=== PATIENT | male | born 1960 | race African-American/Black ===

== ENCOUNTER 2018-07-03 23:57 | Inpatient (IN) | payer OTHER, SELFPAY ==
[2018-07-04] MEDS ORDERED: Propofol 1,000 MG/100 ML VIAL IV ONE (00:02)
--- NOTE | 2018-07-04 00:12 | PDOC.FPRHP ---
- History of Present Illness ED Course: intubation and diprivan - Allergies/Adverse Reactions Allergies Allergy/AdvReac Type Severity Reaction Status Date / Time Penicillins Allergy Verified 11/30/13 18:17 - Home Medications Medication Instructions Recorded Confirmed Type Phenytoin Sodium Extended 100 mg PO BID 02/23/14 02/26/14 History carBAMazepine [Tegretol] 200 mg PO TID 02/23/14 02/26/14 History - History PMHx: PSHx: FHx: Social: - Vital signs BP: 158/104 HR: 82 RR: Tmax: Pox: 100% on vent Wt: FMR H&P: Upper Level - Plan Date/Time: 07/04/18 0010 I, [], have evaluated this patient and agree with findings/plan as outlined by management internship resident. Pertinent changes/additions are listed here.
[2018-07-04 00:19] LABS: #Basophils 0.1 thou/uL (0.0-0.2); #Eosinphils 0.1 thou/uL (0.0-0.7); #Lymphocytes 1.2 thou/uL (1.20-3.40); #Monocytes 0.6 thou/uL (0.11-0.59); #Neutrophils 4.4 thou/uL (1.40-6.50); %Basophils 0.9 % (0.0-1.0); %Eosinophils 0.9 % (0.0-10.0); %Lymphocytes 19.7 % (21.0-51.0); %Monocytes 8.8 % (0.0-10.0); %Neutrophils 69.7 % (42.0-75.0); Hemoglobin 14.9 g/dL (14.0-18.0); Mean Corpuscular HGB CONC 32.7 g/dL (32.0-36.0); Mean Corpuscular Hemoglobin 32.1 pg (27.0-31.0); Mean Corpuscular Volume 98.2 fL (78.0-98.0); Mean Platelet Volume 6.9 fL (7.4-10.4); Platelet Count 254 thou/uL (130-400); RBC Distribution Width 13.8 % (11.5-14.5); Red Blood Cell (RBC) Count 4.65 mill/uL (4.70-6.10); White Blood Cell (WBC) Count 6.3 thou/uL (4.8-10.8)
[2018-07-04] MEDS ORDERED: Vecuronium 10 MG VIAL ONE (00:22)
[2018-07-04 00:24] LABS: Bilirubin Negative (Negative); Blood, Urine Small (Negative); Clarity CLOUDY (Clear); Glucose, Urine (Dipstick) Negative (Negative); Leukocyte Large (Negative); Nitrite Positive (Negative); Protein, Urine (Dipstick) Negative (Neg-Trace); Specific Gravity, Urine 1.007 (1.002-1.036); Urobilinogen 0.2 mg/dL (0.2-1.0); pH, Urine 6.5 (5.0-9.0)
[2018-07-04] MEDS ORDERED: Sterile Water 10 ML ONE (00:24)
[2018-07-04 00:25] LABS: INR-International Normal Ratio 1.1; Prothrombin Time 14.7 SEC (12.0-14.7)
[2018-07-04 00:26] LABS: Bacteria/HPF 3+ HPF (None Seen); RBC/HPF 0-3 HPF (0-3); Squamous Epithelial 0-3 HPF (0-3)
[2018-07-04 00:30] LABS: Hyaline Casts/LPF 0-3 HYALINE CAST LPF (0-3 Hyaline); Other Casts/LPF None Seen LPF (0-3 Hyaline)
[2018-07-04 00:38] LABS: ALT (SGPT) 19 U/L (8-55); AST (SGOT) 29 U/L (5-34); Albumin 4.6 g/dL (3.5-5.0); Alcohol 203 mg/dL (Less than 10); Alkaline Phosphatase 74 U/L (40-150); Anion Gap 19 mmol/L (10-20); BUN (Urea Nitrogen) 9 mg/dL (8.4-25.7); Bilirubin, Total 0.3 mg/dL (0.2-1.2); Calc. Creatinine Clearance 0 mL/min (70-130); Calcium 8.8 mg/dL (7.8-10.44); Carbon Dioxide 20 mmol/L (22-29); Chloride 104 mmol/L (98-107); Estimated GFR-MDRD Greater than 90; Globulin 3.4 g/dL (2.4-3.5); Glucose 105 mg/dL (70-105); Lipase 45 U/L (8-78); Potassium 3.9 mmol/L (3.5-5.1); Sodium 139 mmol/L (136-145)
[2018-07-04] MEDS ORDERED: cefTRIAXone\\ROCEPHIN 1 GM VIAL ONE (00:55)
[2018-07-04] MEDS ORDERED: Multivitamins, Adult 10 ML, Thiamine HCl 100 MG, Folic Acid 1 MG in Dextrose 5 %-0.45 %... IV ONE (01:00)
[2018-07-04] MEDS ORDERED: Dextrose 5% in Water 1,000 ML IV PRN (01:06)
[2018-07-04] MEDS ORDERED: hydrALAZINE 20 MG/ML VIAL SLOW IVP PRN (01:06)
[2018-07-04] MEDS ORDERED: Ondansetron PF 4 MG/2 ML Vial IVP PRN (01:06)
[2018-07-04] MEDS ORDERED: Dextrose 50% Abboject 50 ML SYRINGE SLOW IVP PRN (01:06)
[2018-07-04] MEDS ORDERED: Lorazepam 2 MG/ML VIAL SLOW IVP PRN ×3 (01:06→01:18)
[2018-07-04 01:13] LABS: Actual Bicarbonate (HCO3a) 17.3 mEq/L (22-28); Analyzer IN Cardio ER; Base Excess (BEa) -7.6 mEq/L (-2.0 to +3.0); CO2 Tension 33.8 mmHg (35.0-45.0); Carboxyhemoglobin (COHb) 3.5 gm% (0.0-3.0); Hemoglobin (Hb) 14.7 g/dL (14.0-18.0); Potassium - ABG Lab 3.39 mmol/L (3.70-5.30); pH, Arterial 7.33 (7.35-7.45)
[2018-07-04 01:14] LABS: Puncture Site RRA
[2018-07-04] MEDS ORDERED: Rib Fracture Protocol IV SCH (01:15)
[2018-07-04] MEDS ORDERED: Ventilator Sedation Protocol 1 EACH FS SCH (01:15)
[2018-07-04 01:16] LABS: O2 Tension (PaO2) 529.9 mmHg (80.0-100.0)
[2018-07-04] MEDS ORDERED: fentaNYL Citrate/PF 2,000 MCG in Sodium Chloride 0.9% 60 ML IV SCH (01:18)
[2018-07-04] MEDS ORDERED: Morphine 2 MG/ML SYRINGE SLOW IVP PRN (01:18)
[2018-07-04] MEDS ORDERED: Fentanyl BOLUS 250 ML IVPB PRN (01:18)
[2018-07-04] MEDS ORDERED: DISCONTINUE PREVIOUS NARCOTIC PAIN MEDICATIONS AND BENZODIAZEPINES FS SCH (01:18)
[2018-07-04] MEDS ORDERED: Propofol BOLUS 1,000 MG/100 ML VIAL IV PRN (01:18)
[2018-07-04 02:12] LABS: Amphetamine Not Detected (NotDetected); Benzodiazepine Screen Not Detected (NotDetected); Cocaine Metabolite Screen Detected (NotDetected); Medtox Reader # READER 4; Methamphetamine Detected (NotDetected); Opiate Screen Not Detected (NotDetected); Phencyclidine (PCP) Not Detected (NotDetected); THC/Cannabinoid Screen Detected (NotDetected)
[2018-07-04 02:13] LABS: Barbiturates Screen Detected (NotDetected); Medtox Control Line Valid? VALID (VALID); Methadone Not Detected (NotDetected); Oxycodone Screen Not Detected (NotDetected); Tricyclic Screen Not Detected (NotDetected)
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
[2018-07-04 05:17] LABS: #Basophils 0.1 thou/uL (0.0-0.2); #Monocytes 0.6 thou/uL (0.11-0.59); #Neutrophils 3.9 thou/uL (1.40-6.50); %Basophils 1.2 % (0.0-1.0); %Eosinophils 0.4 % (0.0-10.0); %Lymphocytes 30.2 % (21.0-51.0); %Neutrophils 59.2 % (42.0-75.0); Hemoglobin 13.8 g/dL (14.0-18.0); Mean Corpuscular HGB CONC 32.9 g/dL (32.0-36.0); Mean Corpuscular Hemoglobin 32.6 pg (27.0-31.0); Mean Corpuscular Volume 98.9 fL (78.0-98.0); Platelet Count 202 thou/uL (130-400); RBC Distribution Width 13.7 % (11.5-14.5); Red Blood Cell (RBC) Count 4.24 mill/uL (4.70-6.10); White Blood Cell (WBC) Count 6.6 thou/uL (4.8-10.8)
[2018-07-04] MEDS: Sodium Chloride 0.9% 1,000 ML IV SCH ×2 (05:24→10:02)
[2018-07-04] MEDS: Ketorolac Tromethamine 30 MG/ML VIAL IVP SCH ×3 (05:26→17:49)
[2018-07-04 05:28] LABS: Lactic Acid 6.1 mmol/L (0.5-2.2)
[2018-07-04 05:30] LABS: Anion Gap 20 mmol/L (10-20); BUN (Urea Nitrogen) 7 mg/dL (8.4-25.7); Calc. Creatinine Clearance 41 mL/min (70-130); Calcium 8.1 mg/dL (7.8-10.44); Carbon Dioxide 17 mmol/L (22-29); Chloride 107 mmol/L (98-107); Estimated GFR-MDRD Greater than 90; Glucose 99 mg/dL (70-105); Potassium 3.6 mmol/L (3.5-5.1); Sodium 140 mmol/L (136-145)
[2018-07-04] MEDS: Propofol 1,000 MG/100 ML VIAL IV PRN ×2 (05:37→10:01)
[2018-07-04] MEDS: Acetaminophen 650 MG Suppository PR SCH ×3 (05:57→17:49)
[2018-07-04] MEDS ORDERED: Famotidine/PF 20 mg/2ml Vial SLOW IVP SCH (09:00)
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
[2018-07-04] MEDS: Enoxaparin Sodium 40 MG/0.4 ML SYRINGE SC SCH (10:00)
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
--- NOTE | 2018-07-04 10:12 | RAD ---
CHEST ONE VIEW: History: Chest pain. Follow up. Comparison: 07-04-18 FINDINGS: Cardiac silhouette is magnified by projection. Pulmonary vasculature is unremarkable. Mediastinum is midline. Lines and tubes appear unchanged in position. Lungs remain hyperinflated. Old left rib fract ures. IMPRESSION: Stable radiographic appearance of the chest. POS: [facility]
[2018-07-04] MEDS ORDERED: Labetalol HCl 100 MG/20 ML VIAL SLOW IVP PRN (10:53)
[2018-07-04] MEDS ORDERED: hydrALAZINE 20 MG/ML VIAL SLOW IVP SCH (11:00)
--- NOTE | 2018-07-04 11:03 | PDOC.PN ---
- Subjective Encounter Start Date: 07/04/18 Encounter Start Time: 07:00 -: non-verbal Pt seen for management of medical comorbidities, including elevated blood pressure. Pt is intubated, unable to complete ROS. - Objective Resuscitation Status - Order Detail: 07/04/18 01:06 Resuscitation Status Routine Resuscitation Status: FULL: Full Resuscitation MAR Reviewed: Yes Vital Signs & Weight: Vital Signs (12 hours) Temp Pulse Resp BP Pulse Ox 07/04/18 10:00 20 07/04/18 08:52 87 146/100 H 07/04/18 08:43 88 20 100 07/04/18 08:00 99.8 F H 20 07/04/18 06:00 20 07/04/18 04:35 100 07/04/18 04:00 20 07/04/18 02:21 80 143/106 H 07/04/18 02:15 20 Weight Weight 56 lb 12.8 oz Most Recent Monitor Data Heart Rate from ECG 88 NIBP 156/102 NIBP BP-Mean 120 Respiration from ECG 20 SpO2 100 I&O: 07/03/18 07/04/18 07/05/18 06:59 06:59 06:59 Intake Total 882.8 Output Total 990 775 Balance -107.2 -775 Result Diagrams: 07/04/18 04:43 07/04/18 04:43 EKG Reviewed by me: Yes (Tele: NSR) Phys Exam - Physical Examination Intubated and mechanically ventilated HEENT: moist MMs ETT Respiratory: clear to auscultation bilateral Cardiovascular: RRR Gastrointestinal: soft No spontaneous limb movements Deviation from normal: Unable to assess Dx/Plan (1) Elevated blood pressure reading without diagnosis of hypertension Code(s): R03.0 - ELEVATED BLOOD-PRESSURE READING, W/O DIAGNOSIS OF HTN Status : Acute Comment: continue PRN IV hydralazine and start PRN IV labetalol. (2) Acute respiratory failure Code(s): J96.00 - ACUTE RESPIRATORY FAILURE, UNSP W HYPOXIA OR HYPERCAPNIA Status: Acute Comment: Intubated and mechanical ventilation (3) Seizure disorder Code(s): G40.909 - EPILEPSY, UNSP, NOT INTRACTABLE, WITHOUT STATUS EPILEPTICUS Status: Chronic Comment: resume home meds when clarified, check phenytoin level - Plan * . Review of Systems - Medications/Allergies Allergies/Adverse Reactions: Allergies Allergy/AdvReac Type Severity Reaction Status Date / Time Penicillins Allergy Verified 11/30/13 18:17 Medications: Current Medications Acetaminophen (Tylenol) 650 mg CA Q6HR [facility] Last Admin: 07/04/18 05:57 Dose: 650 mg Albuterol/Ipratropium (Duoneb) 3 ml NEB Q4H PRN PRN Reason: Wheezing Albuterol/Ipratropium (Duoneb) 3 ml NEB [id number] [facility] Last Admin: 07/04/18 08:43 Dose: 3 ml Dextrose/Water (Dextrose 50%) 25 gm SLOW IVP PRN PRN PRN Reason: Hypoglycemia Enoxaparin Sodium (Lovenox) 40 mg SC 0900 [facility] Last Admin: 07/04/18 10:00 Dose: 40 mg Famotidine (Pepcid) 20 mg SLOW IVP Q12HR [facility] Last Admin: 07/04/18 10:00 Dose: 20 mg Glucagon (Glucagon) 1 mg IM PRN PRN PRN Reason: Hypoglycemia Hydralazine HCl (Apresoline) 10 mg SLOW IVP Q4H PRN PRN Reason: SBP > 170 or DBP > 100 Hydralazine HCl (Apresoline) 10 mg SLOW IVP NOW EDISON Stop: 07/04/18 13:00 Dextrose/Water (D5w) 1,000 mls @ 0 mls/hr IV .Q0M PRN PRN Reason: Hypoglycemia Sodium Chloride (Normal Saline 0.9%) 1,000 mls @ 120 mls/hr IV .Q8H20M [facility] Last Admin: 07/04/18 10:02 Dose: 1,000 mls Fentanyl Citrate 2,000 mcg/ (Sodium Chloride) 100 mls @ 0 mls/hr IV INF EDISON; Protocol Stop: 08/03/18 01:18 Fentanyl Citrate (Fentanyl Bolus) 250 mls @ 0 mls/hr IVPB PRN PRN PRN Reason: Breakthrough pain/agitation Stop: 08/03/18 01:18 Ketorolac Tromethamine (Toradol) 30 mg IVP Q6HR [facility] Stop: 07/09/18 06:01 Last Admin: 07/04/18 05:26 Dose: 30 mg Labetalol HCl (Normodyne) 10 mg SLOW IVP Q4H PRN PRN Reason: SBP GREATER THAN 160 Lorazepam (Ativan) 2 mg SLOW IVP Q6H PRN PRN Reason: Anxiety/Agitation Last Admin: 07/04/18 02:45 Dose: 2 mg Lorazepam (Ativan) 4 mg SLOW IVP Q6H PRN PRN Reason: SEVERE Anxiety/Agitation Lorazepam (Ativan) 2 mg SLOW IVP Q1H PRN PRN Reason: Breakthrough agitation Stop: 08/03/18 01:18 Miscellaneous Medication (Rib Fracture Protocol) 1 each IV ONE EDISON Stop: 07/04/18 23:59 Miscellaneous Medication (Ventilator Sedation Protocol) 1 each FS ONE EDISON Stop: 07/04/18 23:59 Morphine Sulfate (Morphine) 2 mg SLOW IVP Q1H PRN PRN Reason: BREAKTHROUGH PAIN/Agitation Stop: 08/03/18 01:18 Discontinue Previous Narcotic Pain Medications And Benzodiazepines 1 each FS .ONE EDIOSN Stop: 08/03/18 01:18 Ondansetron HCl (Zofran) 4 mg IVP Q6H PRN PRN Reason: Nausea Propofol (Diprivan) 1,000 mg IV INF PRN; Protocol PRN Reason: TO ACHIEVE GOAL RASS Stop: 08/03/18 01:18 Last Admin: 07/04/18 10:01 Dose: 1,000 mg Propofol (Diprivan Bolus) 20 mg IV Q5MIN PRN PRN Reason: BREAKTHROUGH AGITATION Stop: 08/03/18 01:18 Sodium Chloride (Flush - Normal Saline) 10 ml IVF PRN PRN PRN Reason: Saline Flush
--- NOTE | 2018-07-04 11:40 | RAD ---
CHEST XRAY: DATE: 07/04/2018. HISTORY: Rib fractures, on ventilator. Followup evaluation. COMPARISON: 02/24/2014. FINDINGS: Endotracheal tube is now noted in place with the tip overlying the T4 vertebral body and above the le amado of the allegra. Cardiac silhouette is magnified by projection. The pulmonary vasculature is with in normal limits. There are remote fractures involving the left posterior 9th and 10th ribs. There is a slightly displaced fracture involving the anterolateral left 3rd rib and probably the lateral 4t h rib. There is also a fracture involving the distal left clavicle which appears slightly displaced. The lungs are clear bilaterally, and there is no pneumothorax or pleural effusion seen. Cardiac si lhouette is magnified by projection. Pulmonary vasculature is within normal limits. IMPRESSION: 1. Endotracheal tube noted in place which is above the level of the allegra. 2. Fracture involving the distal left clavicle as well as subtle fractures involving the left kentrell lateral 3rd and lateral left 4th ribs. 3. Remote left posterior 9th and 10th ribs. POS: [facility]
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
[2018-07-04] MEDS: carBAMazepine 200 MG TAB PO SCH (14:51)
[2018-07-04] MEDS: Sodium Chloride 0.45% 1,000 ML IV SCH (15:20)
[2018-07-04] MEDS ORDERED: Acetaminophen 500 MG TAB PO PRN (17:52)
[2018-07-04] MEDS ORDERED: Rib Fracture Protocol PO SCH (18:42)
[2018-07-04] MEDS ORDERED: Cyclobenzaprine 10 MG TAB PO PRN (19:00)
[2018-07-04] MEDS: Gabapentin 300 MG CAP PO SCH (20:54)
[2018-07-05] MEDS ORDERED: cefTRIAXone\\ROCEPHIN 1 GM in Sodium Chloride 0.9% 100 ML IVPB SCH (01:00)
[2018-07-05] MEDS: Ketorolac Tromethamine 30 MG/ML VIAL IVP SCH ×3 (01:14→12:06)
[2018-07-05] MEDS: Ibuprofen 800 MG TAB PO SCH ×6 (01:15→23:04)
[2018-07-05] MEDS: Acetaminophen 500 MG TAB PO SCH ×5 (01:15→23:04)
[2018-07-05] MEDS: traMADol HCl 50 MG TAB PO SCH ×2 (01:15→05:14)
[2018-07-05] MEDS: Sodium Chloride 0.45% 1,000 ML IV SCH (03:36)
[2018-07-05] MEDS ORDERED: VANCOMYCIN IVPB PRN (07:20)
[2018-07-05 07:55] LABS: Lavender RECEIVED; Red RECEIVED
[2018-07-05] MEDS ORDERED: Vancomycin HCl 750 MG in Sodium Chloride 0.9% 250 ML 250 ML IVPB SCH (08:00)
[2018-07-05] MEDS ORDERED: HYDROcodone/Acetaminophen 5/325 mg Tablet PO PRN ×2 (08:05)
[2018-07-05] MEDS: Enoxaparin Sodium 40 MG/0.4 ML SYRINGE SC SCH (08:25)
[2018-07-05] MEDS: Gabapentin 300 MG CAP PO SCH ×3 (08:26→19:57)
[2018-07-05] MEDS: carBAMazepine 200 MG TAB PO SCH ×4 (08:26→19:56)
[2018-07-05 08:31] LABS: #Basophils 0.1 thou/uL (0.0-0.2); #Lymphocytes 1.7 thou/uL (1.20-3.40); #Monocytes 0.7 thou/uL (0.11-0.59); #Neutrophils 3.2 thou/uL (1.40-6.50); %Basophils 1.7 % (0.0-1.0); %Eosinophils 0.8 % (0.0-10.0); %Lymphocytes 29.7 % (21.0-51.0); %Monocytes 11.6 % (0.0-10.0); %Neutrophils 56.2 % (42.0-75.0); Anion Gap 13 mmol/L (10-20); BUN (Urea Nitrogen) 9 mg/dL (8.4-25.7); Calc. Creatinine Clearance 79 mL/min (70-130); Carbon Dioxide 22 mmol/L (22-29); Chloride 105 mmol/L (98-107); Estimated GFR-MDRD Greater than 90; Glucose 111 mg/dL (70-105); Hemoglobin 14.4 g/dL (14.0-18.0); Magnesium 2.2 mg/dL (1.6-2.6); Mean Corpuscular HGB CONC 32.6 g/dL (32.0-36.0); Mean Corpuscular Hemoglobin 32.1 pg (27.0-31.0); Mean Corpuscular Volume 98.5 fL (78.0-98.0); Mean Platelet Volume 6.9 fL (7.4-10.4); Phosphorus 2.7 mg/dL (2.3-4.7); Platelet Count 185 thou/uL (130-400); Potassium 4.1 mmol/L (3.5-5.1); RBC Distribution Width 13.7 % (11.5-14.5); Sodium 136 mmol/L (136-145); White Blood Cell (WBC) Count 5.6 thou/uL (4.8-10.8)
--- NOTE | 2018-07-05 13:52 | PDOC.PN ---
- Subjective Encounter Start Date: 07/05/18 Encounter Start Time: 09:00 Pt seen for followup re: seizure. Had Code Green earlier for seizure. Denies chest pain, shortness of breath, fevers or chills. - Objective Resuscitation Status - Order Detail: 07/04/18 01:06 Resuscitation Status Routine Resuscitation Status: FULL: Full Resuscitation Vital Signs & Weight: Vital Signs (12 hours) Temp Pulse Pulse Resp Resp BP BP 07/05/18 13:25 92 24 H 07/05/18 12:00 97.6 F 73 16 138/90 07/05/18 07:58 97.5 F L 64 16 135/92 H 07/05/18 07:39 07/05/18 07:36 63 28 H 07/05/18 07:28 63 18 158/99 H 07/05/18 04:32 97.8 F 73 20 BP Pulse Ox Pulse Ox 07/05/18 13:25 07/05/18 12:00 98 07/05/18 07:58 96 07/05/18 07:39 97 07/05/18 07:36 97 07/05/18 07:28 97 07/05/18 04:32 126/83 97 Weight Weight 125 lb 3.561 oz Most Recent Monitor Data Heart Rate from ECG 83 NIBP 140/96 NIBP BP-Mean 110 Respiration from ECG 20 SpO2 97 I&O: 07/04/18 07/05/18 07/06/18 06:59 06:59 06:59 Intake Total 882.8 2140 Output Total 990 3255 Balance -107.2 -1115 Result Diagrams: 07/05/18 07:39 07/05/18 07:39 Additional Labs: Accuchecks 07/05/18 07:33 POC Glucose 105 Phys Exam - Physical Examination Constitutional: NAD HEENT: moist MMs Neck: supple Respiratory: clear to auscultation bilateral Cardiovascular: RRR Gastrointestinal: soft Neurological: moves all 4 limbs Psychiatric: normal affect Dx/Plan (1) Seizure Code(s): R56.9 - UNSPECIFIED CONVULSIONS Status: Acute Comment: phenytoin level subtherapeutic; phenytoin loading followed by daily phenytoin. Resume keppra. (2) Elevated blood pressure reading without diagnosis of hypertension Code(s): R03.0 - ELEVATED BLOOD-PRESSURE READING, W/O DIAGNOSIS OF HTN Status : Acute Comment: controlled (3) Acute respiratory failure Code(s): J96.00 - ACUTE RESPIRATORY FAILURE, UNSP W HYPOXIA OR HYPERCAPNIA Status: Acute Comment: s/p extubation - Plan * . Review of Systems - Review of Systems Respiratory: negative: Cough, Shortness of Breath, SOB with Excertion, Pleuritic Pain, Wheezing Cardiovascular: negative: chest pain, palpitations, orthopnea, paroxysmal nocturnal dyspnea, edema, light headedness - Medications/Allergies Allergies/Adverse Reactions: Allergies Allergy/AdvReac Type Severity Reaction Status Date / Time Penicillins Allergy Verified 11/30/13 18:17 Medications: Current Medications Acetaminophen (Tylenol) 1,000 mg PO Q6HR [facility] Last Admin: 07/05/18 12:05 Dose: 1,000 mg Hydrocodone Bitart/Acetaminophen ([place] 5/325) 1 tab PO Q4H PRN PRN Reason: Moderate to Severe Pain (6-10) Hydrocodone Bitart/Acetaminophen ([place] 5/325) 2 tab PO Q4H PRN PRN Reason: Severe Pain (7-10) Albuterol/Ipratropium (Duoneb) 3 ml NEB Q4H PRN PRN Reason: Wheezing Albuterol/Ipratropium (Duoneb) 3 ml NEB [id number] [facility] Last Admin: 07/05/18 13:25 Dose: 3 ml Carbamazepine (Tegretol) 200 mg PO TID-[facility] Last Admin: 07/05/18 12:06 Dose: 200 mg Carbamazepine (Tegretol) 200 mg PO TID [facility] Cyclobenzaprine HCl (Flexeril) 10 mg PO TID PRN PRN Reason: Muscle Spasm Dextrose/Water (Dextrose 50%) 25 gm SLOW IVP PRN PRN PRN Reason: Hypoglycemia Enoxaparin Sodium (Lovenox) 40 mg SC 0900 [facility] Last Admin: 07/05/18 08:25 Dose: 40 mg Gabapentin (Neurontin) 300 mg PO TID [facility] Last Admin: 07/05/18 08:26 Dose: 300 mg Glucagon (Glucagon) 1 mg IM PRN PRN PRN Reason: Hypoglycemia Hydralazine HCl (Apresoline) 10 mg SLOW IVP Q4H PRN PRN Reason: SBP > 170 or DBP > 100 Dextrose/Water (D5w) 1,000 mls @ 0 mls/hr IV .Q0M PRN PRN Reason: Hypoglycemia Sodium Chloride (1/2 Normal Saline) 1,000 mls @ 0 mls/hr IV .Q0M [facility] Last Admin: 07/05/18 03:36 Dose: Not Given Ceftriaxone Sodium 1 gm/ (Sodium Chloride) 100 mls @ 200 mls/hr IVPB Q24HR@ 0100 [facility] Last Admin: 07/05/18 01:16 Dose: 100 mls Ciprofloxacin/Dextrose 400 mg/ (Device) 200 mls @ 200 mls/hr IVPB 1200,2359 [facility] Last Admin: 07/05/18 12:06 Dose: 200 mls Ibuprofen (Motrin) 800 mg PO Q6HR [facility] Last Admin: 07/05/18 12:17 Dose: Not Given Ketorolac Tromethamine (Toradol) 30 mg IVP Q6HR [facility] Stop: 07/09/18 06:01 Last Admin: 07/05/18 12:06 Dose: 30 mg Labetalol HCl (Normodyne) 10 mg SLOW IVP Q4H PRN PRN Reason: SBP GREATER THAN 160 Lorazepam (Ativan) 4 mg SLOW IVP Q6H PRN PRN Reason: SEVERE Anxiety/Agitation Lorazepam (Ativan) 2 mg SLOW IVP Q1H PRN PRN Reason: Breakthrough agitation Stop: 08/03/18 01:18 Miscellaneous Medication (Rib Fracture Protocol) 1 each PO ONE [facility] Stop: 07/14/18 18:43 Discontinue Previous Narcotic Pain Medications And Benzodiazepines 1 each FS .ONE [facility] Stop: 08/03/18 01:18 Ondansetron HCl (Zofran) 4 mg IVP Q6H PRN PRN Reason: Nausea Phenytoin Sodium (Dilantin Er) 100 mg PO BID [facility] Sodium Chloride (Flush - Normal Saline) 10 ml IVF PRN PRN PRN Reason: Saline Flush
[2018-07-05] MEDS ORDERED: Nitrofurantoin Monohyd/M-Cryst 100 MG CAP PO SCH (15:00)
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
[2018-07-05] MEDS: Nitrofurantoin Monohyd/M-Cryst 100 MG CAP PO SCH (19:56)
[2018-07-06] MEDS: Sodium Chloride 0.45% 1,000 ML IV SCH (01:02)
[2018-07-06] MEDS: Acetaminophen 500 MG TAB PO SCH ×2 (05:22→11:40)
[2018-07-06] MEDS: Ibuprofen 800 MG TAB PO SCH ×2 (05:22→11:40)
[2018-07-06 06:08] LABS: #Eosinphils 0.1 thou/uL (0.0-0.7); #Monocytes 0.6 thou/uL (0.11-0.59); %Basophils 0.5 % (0.0-1.0); %Eosinophils 0.9 % (0.0-10.0); %Lymphocytes 15.3 % (21.0-51.0); %Monocytes 9.3 % (0.0-10.0); Hemoglobin 13.2 g/dL (14.0-18.0); Mean Corpuscular HGB CONC 32.5 g/dL (32.0-36.0); Mean Corpuscular Hemoglobin 32.2 pg (27.0-31.0); Mean Platelet Volume 7.2 fL (7.4-10.4); Platelet Count 157 thou/uL (130-400); RBC Distribution Width 13.7 % (11.5-14.5); Red Blood Cell (RBC) Count 4.09 mill/uL (4.70-6.10); White Blood Cell (WBC) Count 6.8 thou/uL (4.8-10.8)
[2018-07-06 06:31] LABS: Anion Gap 12 mmol/L (10-20); BUN (Urea Nitrogen) 8 mg/dL (8.4-25.7); Calc. Creatinine Clearance 80 mL/min (70-130); Calcium 8.8 mg/dL (7.8-10.44); Carbon Dioxide 26 mmol/L (22-29); Chloride 102 mmol/L (98-107); Estimated GFR-MDRD Greater than 90; Glucose 117 mg/dL (70-105); Magnesium 2.1 mg/dL (1.6-2.6); Phosphorus 3.5 mg/dL (2.3-4.7); Potassium 3.5 mmol/L (3.5-5.1); Sodium 136 mmol/L (136-145)
[2018-07-06 08:32] VITALS: TEMP 98.2
[2018-07-06] MEDS: Enoxaparin Sodium 40 MG/0.4 ML SYRINGE SC SCH (08:35)
[2018-07-06] MEDS: Gabapentin 300 MG CAP PO SCH ×2 (08:35→15:38)
[2018-07-06] MEDS: carBAMazepine 200 MG TAB PO SCH ×2 (08:35→15:37)
[2018-07-06] MEDS: Nitrofurantoin Monohyd/M-Cryst 100 MG CAP PO SCH (08:35)
[2018-07-06 11:50] VITALS: BP 153/97
--- NOTE | 2018-07-06 17:26 | PDOC.PN ---
- Subjective Encounter Start Date: 07/06/18 Encounter Start Time: 08:40 Pt seen for followup re: seizure. No complaints today. - Objective Resuscitation Status - Order Detail: 07/04/18 01:06 Resuscitation Status Routine Resuscitation Status: FULL: Full Resuscitation Vital Signs & Weight: Vital Signs (12 hours) Temp Pulse Resp BP Pulse Ox 07/06/18 13:32 90 14 07/06/18 10:31 98.2 F 84 18 153/97 H 97 07/06/18 08:45 97 07/06/18 07:14 80 14 07/06/18 07:10 98.2 F 82 18 166/94 H 97 Weight Weight 125 lb 3.561 oz Most Recent Monitor Data Heart Rate from ECG 83 NIBP 140/96 NIBP BP-Mean 110 Respiration from ECG 20 SpO2 97 I&O: 07/05/18 07/06/18 07/07/18 06:59 06:59 06:59 Intake Total 2140 3100 Output Total 3255 1600 Balance -1115 1500 Result Diagrams: 07/06/18 05:21 07/06/18 05:21 Phys Exam - Physical Examination Constitutional: NAD HEENT: moist MMs Neck: supple Respiratory: clear to auscultation bilateral Cardiovascular: RRR Gastrointestinal: soft Neurological: moves all 4 limbs Psychiatric: normal affect Dx/Plan (1) Seizure Code(s): R56.9 - UNSPECIFIED CONVULSIONS Status: Acute Comment: pt has been restarted on phenytoin. Likely home today, continue phenytoin and Keppra as outpt. Discussed with pt the importance of having phenytoin level and albumin level checked in 5 days. Patient expressed understanding. (2) Elevated blood pressure reading without diagnosis of hypertension Code(s): R03.0 - ELEVATED BLOOD-PRESSURE READING, W/O DIAGNOSIS OF HTN Status : Acute Comment: patient has been started on amlodipine. Advised pt to followup with primary care provider re; hypertension management. Pt expressed understanding. (3) UTI (urinary tract infection) Status: Acute Comment: Course of nitrofurantoin as outpatient (4) Acute respiratory failure Code(s): J96.00 - ACUTE RESPIRATORY FAILURE, UNSP W HYPOXIA OR HYPERCAPNIA Status: Resolved Comment: resolved - Plan * . Plan to discharge noted, will sign off. Review of Systems - Review of Systems Cardiovascular: negative: chest pain, palpitations, orthopnea, paroxysmal nocturnal dyspnea, edema, light headedness Gastrointestinal: negative: Nausea, Vomiting, Abdominal Pain, Diarrhea, Constipation, Melena, Hematochezia Neurological: negative: Confusion, Seizures - Medications/Allergies Allergies/Adverse Reactions: Allergies Allergy/AdvReac Type Severity Reaction Status Date / Time Penicillins Allergy Verified 11/30/13 18:17
== END 2018-07-06 16:05 | disposition home or self-care (01) | DRG 189 ==
LOC: ERS 23:57 → CCU 07-04 00:51 → SURG A 07-04 18:48
PROVIDERS: ADMIT Surgery; ATTEND Surgery
PROC: 0BH17EZ Insertion of Endotracheal Airway into Trachea, Via Natural or Artificial Opening (ICD-10-PCS; principal; 2018-07-04)
DX: J96.01 Acute respiratory failure with hypoxia (principal); S22.42XA Multiple fractures of ribs, left side, initial encounter for closed fracture; E87.2 Acidosis; N39.0 Urinary tract infection, site not specified; S42.002A Fracture of unspecified part of left clavicle, initial encounter for closed fracture; V03.90XA Pedestrian on foot injured in collision with car, pick-up truck or van, unspecified whether traffic or nontraffic accident, initial encounter; F10.129 Alcohol abuse with intoxication, unspecified; Y90.9 Presence of alcohol in blood, level not specified; J44.9 Chronic obstructive pulmonary disease, unspecified; R03.0 Elevated blood-pressure reading, without diagnosis of hypertension; G40.909 Epilepsy, unspecified, not intractable, without status epilepticus; I10 Essential (primary) hypertension; F14.10 Cocaine abuse, uncomplicated; F12.10 Cannabis abuse, uncomplicated; S16.1XXA Strain of muscle, fascia and tendon at neck level, initial encounter
CPT/HCPCS: 36415; 36416; 70450; 71045; 71260; 72125; 72170; 74177; 80048; 80053; 80185; 80306; 80307; 81003; 81015; 82550; 82805; 83605; 83690; 83735; 84100; 84146; 84484; 85025; 85610; 85730; 86850; 86900; 86901; 87040; 87077; 87086; 87149; 87186; 93005; 94002; 94003; 94640; A4216; G0390; G8978-GP-CL; G8979-GP-CJ; J0360; J0696; J0744; J1650; J1885; J2060; J2704; J3010; J3370; J3411; J7042; J7050; J7620; Q2009; S0028